=== PATIENT | male | born 1945 | race Two or more races ===

== ENCOUNTER 2019-01-11 20:33 | Inpatient (IN) | payer MEDICARE, OTHER ==
[~2019-01-11] VITALS: Ht 162.6 cm; Wt 66.3 kg
[2019-01-11] MEDS ORDERED: SODIUM CHLORIDE 0.9% 1000ML BAG (SEPSIS BOLUS) IV ONE (22:00)
[2019-01-11] MEDS ORDERED: LEVOFLOXACIN 750MG PREMIX 150 ML IV ONE (22:00)
[2019-01-11 22:52] LABS: CHLORIDE 109 mEq/L (98-107); CLARITY URINE CLEAR (CLEAR); COLOR URINE YELLOW (YELLOW); KETONES URINE NEGATIVE (NEGATIVE); LEUKOCYTE ESTERASE URINE NEGATIVE (NEGATIVE); NITRITE URINE NEGATIVE (NEGATIVE); OCCULT BLOOD URINE NEGATIVE (NEGATIVE); PROTEIN URINE NEGATIVE (NEGATIVE); SPECIFIC GRAVITY URINE 1.017 (1.005-1.030)
[2019-01-11 22:54] LABS: INR 1.3; PARTIAL THROMBOPLASTIN TIME 43.6 sec (23.4-31.0); PROTHROMBIN TIME 13.5 sec (9.6-11.0)
[2019-01-11 23:41] LABS: MEAN CORPUSCULAR HEMOGLOBIN 28.3 pg (28.0-32.0); MEAN CORPUSCULAR VOLUME 81.1 fL (80.0-94.0); RED BLOOD CELL COUNT 1.55 mill/uL (4.7-6.1); RED CELL DISTRIBUTION WIDTH 16.9 % (11.6-14.6)
[2019-01-11 23:46] LABS: HEMATOCRIT. 12.5 % (42.0-52.0); HEMOGLOBIN. 4.4 g/dL (14.0-18.0)
[2019-01-11 23:47] LABS: PLATELET 2 x1000/uL (130-400)
[2019-01-12] VITALS (15 sets, daily range): BP systolic 85–127; BP diastolic 39–63
[2019-01-12] MEDS ORDERED: ONDANSETRON HCL 4MG/2ML INJ IV ONE (00:15)
[2019-01-12 00:37] LABS: ATYPICAL LYMPHOCYTES 5; NUCLEATED RED BLOOD CELLS 5 /100 WBC; PLATELET ESTIMATE DECREASED
[2019-01-12] MEDS ORDERED: MAGNESIUM/ALUMINUM HYDROXIDE/SIMETHICONE 30ML UDC PO PRN (01:00)
[2019-01-12] MEDS ORDERED: DOCUSATE SODIUM 100MG CAPSULE PO PRN (01:00)
[2019-01-12] MEDS ORDERED: NA PHOS,M-B/NA PHOS,DI-BA ENEMA 118ML PR PRN (01:00)
[2019-01-12] MEDS ORDERED: GUAIFENESIN 200MG/10ML SUGAR FREE UDC PO PRN (01:00)
[2019-01-12] MEDS ORDERED: IPRATROPIUM/ALBUTEROL 0.5-3(2.5)MG/3ML NEB INH PRN (01:00)
[2019-01-12] MEDS ORDERED: DEXTROSE 50% WATER 50ML SYRINGE IV PRN (01:00)
[2019-01-12] MEDS ORDERED: ONDANSETRON HCL 4MG/2ML INJ IV PRN (01:00)
[2019-01-12] MEDS ORDERED: CLONIDINE 0.1MG TABLET PO PRN (01:00)
[2019-01-12] MEDS ORDERED: MORPHINE SULFATE 4 MG/ML CPJ (NOT FOR IM USE) IV PRN (01:00)
[2019-01-12] MEDS ORDERED: PANTOPRAZOLE SODIUM 40 MG/VIAL IV NR (02:45)
[2019-01-12] MEDS ORDERED: DIGOXIN 500MCG/2ML AMP IV NR (05:15)
[2019-01-12] MEDS ORDERED: ACETAMINOPHEN 325MG TABLET PO SCH (06:30)
[2019-01-12] MEDS: DIPHENHYDRAMINE 50MG/ML VIAL IV PRN ×2 (06:41→21:57)
[2019-01-12] MEDS: BLOOD SUGAR DIAGNOSTIC STRIP TEST SCH ×4 (09:00→21:00)
[2019-01-12] MEDS: INSULIN LISPRO 100 UNITS/ML SUBCUT SCH ×4 (10:28→21:00)
[2019-01-12] MEDS: SODIUM CHLORIDE 0.45% 1,000 ML IV SCH (11:27)
[2019-01-12 13:29] LABS: T4 FREE 1.37 ng/dL (0.76-1.46)
[2019-01-12] MEDS: SODIUM CHLORIDE 0.9% INJ 3ML FLUSH IVF SCH ×2 (14:39→23:45)
[2019-01-12 15:26] LABS: HEMATOCRIT 25.9 % (42.0-52.0); HEMOGLOBIN 8.6 g/dL (14.0-18.0); MEAN CORPUSCULAR HEMOGLOBIN 27.4 pg (28.0-32.0); MEAN CORPUSCULAR VOLUME 82.3 fL (80.0-94.0); RED BLOOD CELL COUNT 3.15 mill/uL (4.7-6.1); RED CELL DISTRIBUTION WIDTH 17.2 % (11.6-14.6)
[2019-01-12] MEDS ORDERED: LISI-604 MT (15:31)
[2019-01-12] MEDS ORDERED: QUET50TA MT (15:31)
[2019-01-12] MEDS ORDERED: PANT40TA4 MT (15:31)
[2019-01-12] MEDS ORDERED: FINA5TAB11 MT (15:31)
[2019-01-12] MEDS ORDERED: ATOR-2 MT (15:31)
[2019-01-12] MEDS ORDERED: INSU3INS8 SUBCUT (15:31)
[2019-01-12] MEDS ORDERED: ESCI5TAB10 MT (15:31)
[2019-01-12] MEDS ORDERED: TAMS0.4C31 MT (15:31)
[2019-01-12] MEDS ORDERED: LEVE500T78 MT (15:31)
[2019-01-12 15:33] LABS: PLATELET 9 x1000/uL (130-400)
[2019-01-12 16:58] LABS: D-DIMER 1.18 mg/L FEU (<0.50)
[2019-01-12 17:06] LABS: CREATINE KINASE MB FRACTION 15.6 ng/mL (0.5-3.6)
[2019-01-12 17:22] LABS: HEMATOCRIT 11.9 % (42.0-52.0); HEMOGLOBIN 4.2 g/dL (14.0-18.0)
[2019-01-12] MEDS ORDERED: ACETAMINOPHEN 650MG/20.3ML UDC PO PRN (20:30)
[2019-01-12] MEDS ORDERED: NOREPINEPHRINE 4 MG in DEXT 5% WATER 246 ML IV PRN (21:00)
[2019-01-12] MEDS ORDERED: ALBUMIN HUMAN 25GM/100ML (25%) IV NR (21:30)
[2019-01-12 21:43] LABS: BG FRACTION INSPIRED OXYGEN 100; BG HCO3 ACT 9.1 mmol/L (22.0-26.0); BG PCO2 15.5 mmHg (35.0-45.0); BG PH 7.387 (7.350-7.450); BG SAMPLE SITE RIGHT RADIAL; BG TOTAL HEMOGLOBIN < 4.5 g/dL (12.0-18.0); BG VENT MODE MASK - NRB
[2019-01-12] MEDS ORDERED: ACETAMINOPHEN 650MG SUPP PR PRN (22:00)
[2019-01-13] VITALS (42 sets, daily range): BP systolic 85–126; BP diastolic 37–83
[2019-01-13] MEDS: SODIUM CHLORIDE 0.45% 1,000 ML IV SCH ×2 (01:19→13:55)
[2019-01-13] MEDS: SODIUM CHLORIDE 0.9% INJ 3ML FLUSH IVF SCH ×3 (06:24→21:38)
[2019-01-13 06:42] LABS: MEAN CORPUSCULAR HEMOGLOBIN 28.9 pg (28.0-32.0); MEAN CORPUSCULAR VOLUME 83.5 fL (80.0-94.0)
[2019-01-13 07:42] LABS: HEMATOCRIT. 12.5 % (42.0-52.0); HEMOGLOBIN. 4.3 g/dL (14.0-18.0); PLATELET 23 x1000/uL (130-400)
[2019-01-13 07:46] LABS: CHLORIDE 113 mEq/L (98-107)
[2019-01-13] MEDS: BLOOD SUGAR DIAGNOSTIC STRIP TEST SCH ×4 (07:46→21:33)
[2019-01-13 07:55] LABS: LDL CHOLESTEROL 39 mg/dL (5-100)
[2019-01-13 07:56] LABS: CREATINE KINASE 250 IU/L (39-308)
[2019-01-13 07:57] LABS: HDL CHOLESTEROL 18 mg/dL (40-59)
[2019-01-13] MEDS: INSULIN LISPRO 100 UNITS/ML SUBCUT SCH ×4 (08:00→21:37)
[2019-01-13 08:02] LABS: CREATINE KINASE MB FRACTION 21.9 ng/mL (0.5-3.6)
[2019-01-13] MEDS: PANTOPRAZOLE SODIUM 40 MG/VIAL IV SCH (09:38)
[2019-01-13 11:39] LABS: HAPTOGLOBIN <31.0 mg/dL (30-200)
[2019-01-13] MEDS: ACETAMINOPHEN 325MG TABLET PO PRN (16:21)
[2019-01-13 18:25] LABS: PLATELET ESTIMATE MARKEDLY DECREASED
[2019-01-14] VITALS (15 sets, daily range): BP systolic 98–126; BP diastolic 53–72
[2019-01-14] MEDS: SODIUM CHLORIDE 0.45% 1,000 ML IV SCH (03:24)
[2019-01-14] MEDS: SODIUM CHLORIDE 0.9% INJ 3ML FLUSH IVF SCH ×2 (06:13→14:00)
[2019-01-14 06:18] LABS: CHLORIDE 117 mEq/L (98-107)
[2019-01-14 06:20] LABS: BASOPHILS % 0.6 % (0.0-2.0); EOSINOPHILS % 1.1 % (0.0-5.0); HEMATOCRIT. 23.5 % (42.0-52.0); HEMOGLOBIN. 8.1 g/dL (14.0-18.0); MEAN CORPUSCULAR HEMOGLOBIN 29.3 pg (28.0-32.0); MEAN PLATELET VOLUME 9.5 fl (7.4-10.4); MONOCYTES % 14.3 % (2.0-8.0); RED BLOOD CELL COUNT 2.76 mill/uL (4.7-6.1); RED CELL DISTRIBUTION WIDTH 15.8 % (11.6-14.6)
[2019-01-14 06:52] LABS: PLATELET 34 x1000/uL (130-400)
[2019-01-14] MEDS: BLOOD SUGAR DIAGNOSTIC STRIP TEST SCH ×3 (08:11→17:27)
[2019-01-14] MEDS: INSULIN LISPRO 100 UNITS/ML SUBCUT SCH ×2 (08:18→13:30)
[2019-01-14] MEDS: PANTOPRAZOLE SODIUM 40 MG/VIAL IV SCH (08:18)
[2019-01-14] MEDS: ACETAMINOPHEN 325MG TABLET PO PRN (12:24)
[2019-01-14] MEDS ORDERED: TAMSULOSIN HCL 0.4MG SR CAPSULE PO SCH (12:30)
[2019-01-14] MEDS ORDERED: MEDICATION NOT ON FORMULARY EA (Finasteride 1 TAB) MT SCH (12:30)
[2019-01-14] MEDS ORDERED: MEDICATION NOT ON FORMULARY EA (Escitalopram Oxalate 1 TAB) MT SCH (12:30)
[2019-01-14] MEDS ORDERED: MEDICATION NOT ON FORMULARY EA (Levetiracetam 1 TAB) MT SCH (12:30)
[2019-01-14] MEDS ORDERED: MEDICATION NOT ON FORMULARY EA (Pantoprazole Sodium 1 TAB) MT SCH (12:30)
[2019-01-14] MEDS ORDERED: FINASTERIDE 5MG TABLET PO SCH (13:00)
[2019-01-14] MEDS ORDERED: CITALOPRAM HYDROBROMIDE 10MG TABLET PO SCH (13:00)
[2019-01-14] MEDS ORDERED: LEVETIRACETAM 500 MG in SODIUM CHLORIDE 0.9% 100 ML IV SCH (14:00)
[2019-01-15] MEDS ORDERED: PANTOPRAZOLE 40MG DR TABLET PO SCH (07:30)
== END 2019-01-14 18:30 | disposition home health service (06) | DRG 808 ==
LOC: ER 21:53 → 5EST 01-12 00:49 → EDBEDREQ 01-12 00:56 → EDBEDREQSVC 01-12 06:29 → ENRESERV 01-12 07:51 → 5EST 01-12 18:25
PROVIDERS: ADMIT Family Medicine; ATTEND Family Medicine
PROC: 30233R1 Transfusion of Nonautologous Platelets into Peripheral Vein, Percutaneous Approach (ICD-10-PCS; principal; 2019-01-12)
PROC: 30233N1 Transfusion of Nonautologous Red Blood Cells into Peripheral Vein, Percutaneous Approach (ICD-10-PCS; 2019-01-12)
DX: D61.818 Other pancytopenia (principal); E43 Unspecified severe protein-calorie malnutrition; C85.90 Non-Hodgkin lymphoma, unspecified, unspecified site; F03.90 Unspecified dementia, unspecified severity, without behavioral disturbance, psychotic disturbance, mood disturbance, and anxiety; E11.9 Type 2 diabetes mellitus without complications; Z74.01 Bed confinement status; I69.398 Other sequelae of cerebral infarction; Z85.07 Personal history of malignant neoplasm of pancreas; Z92.21 Personal history of antineoplastic chemotherapy; Z68.25 Body mass index [BMI] 25.0-25.9, adult
CPT/HCPCS: 36415; 36600; 71045; 80048; 80061; 82375; 82550; 82553; 82962; 83010; 83036; 83540; 83550; 83605; 83615; 83880; 84145; 84439; 84443; 84484; 85014; 85018; 85027; 85044; 85362; 85379; 85384; 86022; 86301; 86850; 86870; 86880; 86900; 86920; 92610; 93005; 93306; 93970; 96365; 96375; 99291; C9113; J1160; J1200; J1815; J1953; J1956; J2270; J2405; J7030; J7040; J7050; P9016; P9034; P9047